=== PATIENT | male | born 1965 ===

== ENCOUNTER 2024-08-22 08:30 | Outpatient (CLI) | payer OTHER ==
[~2024-08-22 08:30] MED LIST: NORVASC2.5 MG; SYNTEST D.S TAB1 TAB
[2024-08-22 09:23] LABS: BASO % 0.5 % (0.1-1.2); EOS # 0.05 (0.04-0.54); EOS % 0.8 % (0.7-7.0); HEMOGLOBIN 16.5 g/dL (13.7-17.5); LYMPH # 1.48 (1.18-3.74); LYMPH % 23.3 % (19.3-53.1); MEAN CORPUSCULAR HEMOGLOBIN 29.7 pg (25.6-32.2); MONO # 0.57 (0.24-0.82); NEUT # 4.22 (1.56-6.13); NEUT % 66.2 % (34.0-71.1); PLATELET COUNT 206 K/uL (163-369); RED BLOOD COUNT 5.56 M/uL (4.63-6.08); RED CELL DISTRIBUTION WIDTH 12.7 % (11.6-14.4)
[2024-08-22 09:31] LABS: PH,URINE 5.5 (5.0-8.0); URINE APPEARANCE Clear; URINE BILIRRUBIN Negative (NEGATIVE); URINE BLOOD Negative; URINE COLOR Yellow; URINE GLUCOSE Negative (NEGATIVE); URINE KETONE Negative (NEGATIVE); URINE LEUKOCYTE Negative; URINE NITRATE Negative; URINE PROTEIN Negative (NEGATIVE); URINE UROBILINOGEN 0.2 E.U./dl
[2024-08-22 09:33] LABS: URINE BACTERIA 4.8 uL (0.0-1933); URINE RBC 2.3 uL (0.0-20.8); URINE WBC 5.8 uL (0.0-23.2)
[2024-08-22 09:55] LABS: COL EPI 92 SECONDS (82-175)
[2024-08-22 10:15] LABS: INR 1.04; PARTIAL THROMBOPLASTIN TIME 34.1 SECONDS (22.0-34.0); PROTHROMBIN TIME 11.3 SECONDS (9.0-11.5)
[2024-08-22 10:30] LABS: URINE EPITHELIAL CELLS 0.1 uL (0.0-38.8)
[2024-08-22 10:41] LABS: ALBUMIN 3.7 gm/dL (3.4-5.0); BILIRUBIN TOTAL 0.44 mg/dL (0.3-1.2); CALCIUM 9.3 mg/dL (8.5-10.1); CREATININE SERUM 1.09 mg/dL (0.70-1.30); GFR 69.73; GLOBULINA 3.4 G/DL (2.4-3.5); POTASSIUM 4.32 mEq/L (3.5-5.1); TOTAL PROTEIN 7.1 gm/dL (6.4-8.2)
== END 2024-08-22 08:31 | disposition home or self-care (01) ==
LOC: RAD 08:30
PROVIDERS: ATTEND Orthopaedic Surgery
DX: D64.9 Anemia, unspecified (principal); E88.89 Other specified metabolic disorders; D68.8 Other specified coagulation defects; N39.0 Urinary tract infection, site not specified; Z22.322 Carrier or suspected carrier of Methicillin resistant Staphylococcus aureus; E11.9 Type 2 diabetes mellitus without complications; Z76.89 Persons encountering health services in other specified circumstances